=== PATIENT | female | born 1940 | race Caucasian/White ===

== ENCOUNTER 2019-05-07 17:22 | Outpatient (CLI) | payer OTHER | END 2019-05-07 21:07 | disposition short-term general hospital (02) | LOC: EEVIPCON 17:22 → MCT 17:22 | DX: M47.892 Other spondylosis, cervical region (principal); M84.48XA Pathological fracture, other site, initial encounter for fracture; E04.1 Nontoxic single thyroid nodule; Z98.890 Other specified postprocedural states | CPT/HCPCS: 72125 ==